=== PATIENT | female | born 1955 | race Caucasian/White ===

== ENCOUNTER → 2022-03-15 | Outpatient (CLI) | payer MEDICARE, BC ==
--- NOTE | 2022-03-17 11:52 | MM ---
Reason for exam: screening (asymptomatic). Last mammogram was performed 5 years ago. History: Patient is postmenopausal. Family history of breast cancer. Physical Findings: A clinical breast exam by your physician is recommended on an annual basis and results should be correlated with mammographic findings. MG 3D Screening Mammo W/Cad Bilateral CC and MLO view(s) were taken. Prior study comparison: March 14, 2017, mammogram, performed at [facility]. January 21, 2014, mammogram, performed at [facility]. September 10, 2012, mammogram, performed at [facility]. There are scattered fibroglandular densities. There is chronic nodularity in the right breast. Benign oil cyst calcifications bilaterally. No significant changes when compared with prior studies. ASSESSMENT: Benign, BI-RAD 2 RECOMMENDATION: Routine screening mammogram of both breasts in 1 year.
== END | disposition home or self-care (01) ==
LOC: RADMAMWWP 12:45
PROVIDERS: ATTEND Family Medicine
DX: Z12.31 Encounter for screening mammogram for malignant neoplasm of breast (principal); Z78.0 Asymptomatic menopausal state; Z80.3 Family history of malignant neoplasm of breast
CPT/HCPCS: 77063; 77067

== ENCOUNTER → 2023-03-01 | Outpatient (CLI) | payer MEDICARE, BC ==
--- NOTE | 2023-03-01 09:17 | CTL ---
EXAMINATION TYPE: CT Low Dose Lung DATE OF EXAM ORDERED: 03/01/2023 COMPARISON: none HISTORY: . Low Dose CT Lung Screening CT DLP: 74.[address] CTDI: 2.1 mGy IV CONTRAST USED: None. SCREENING VISIT: First visit COMPARISON: None. TECHNIQUE: Low dose computed tomography scan was performed through the chest at 1 millimeter thick se ctions and reconstructed images in the coronal plane at [address] DIAGNOSTIC QUALITY: Satisfactory FINDINGS: LUNG NODULES: Not presentLeft lung: no nodules identified.Right lung: no nodules identified. LUNGS: COPD: Severity: None Fibrosis: Severity:None Lymph nodes: None Other findings: None RIGHT PLEURAL SPACE: Effusion: None Calcification: None Thickening: None Pneumothorax: None LEFT PLEURAL SPACE: Effusion: None Calcification: None Thickening: None Pneumothorax: None HEART: Heart Size: Mildly enlarged Coronary calcification: Mild Pericardial effusion: None OTHER FINDINGS: Upper abdomen: No significant abnormality Bony thorax: Degenerative changes Supraclavicular region: No significant abnormalityOther: No significant abnormalityI IMPRESSION: Benign FOLLOW UP CT CHEST RECOMMENDATION: Follow-up screening in one year CT LUNG RAD: LUNG RAD CATEGORY category 1 negative
== END | disposition home or self-care (01) ==
LOC: RADCTMAIN 08:14
PROVIDERS: ATTEND Family Medicine
DX: Z12.2 Encounter for screening for malignant neoplasm of respiratory organs (principal); Z87.891 Personal history of nicotine dependence
CPT/HCPCS: 71271

== ENCOUNTER 2023-04-25 08:51 | Day surgery (SDC) | payer MEDICARE, BC ==
[~2023-04-25 08:51] MED LIST: LACTATED RINGERS 1,000 ML IV SCH
[2023-04-25 09:17] VITALS: TEMP 96.8
[2023-04-25] MEDS ORDERED: LIDOCAINE 2% INJ 20 MG/ML (2 ML VIAL) ONE (09:54)
[2023-04-25] MEDS ORDERED: PROPOFOL 10 MG/ML 20 ML VIAL IV ONE (09:54)
--- NOTE | 2023-04-25 10:20 | P.PCN ---
Date of Procedure: 04/25/23 Procedure(s) Performed: BRIEF HISTORY: Patient is a 68-year-old pleasant white female scheduled for an elective colonoscopy as a part of screening for colon cancer. PROCEDURE PERFORMED: Colonoscopy with snare polypectomy and biopsy. PREOPERATIVE DIAGNOSIS: Screening for colon cancer. IV sedation per Anesthesia. PROCEDURE: After informed consent was obtained, the patient, was brought into the endoscopy unit. IV sedation was administered by Anesthesia under continuous monitoring. Digital rectal examination was normal. Initially the Olympus CF-160 flexible video colonoscope was then inserted in the rectum, gradually advanced into the cecum without any difficulty. Careful examination was performed as the scope was gradually being withdrawn. Ileocecal valve and the appendiceal orifice were visualized and appeared normal. Prep was excellent. Mucosa of the cecum, ascending colon, transverse colon, appeared normal. In the descending colon there was a 3 mm sessile polyp that was removed by cold biopsy. In the sigmoid colon at 30 cm from the anal was there was a 2.5 cm pegylated polyp that was removed by snare polypectomy. Rest of the descending colon, sigmoid colon, and rectum appeared normal. Retroflexion was performed in the rectum and no lesions were seen. The patient tolerated the procedure well. IMPRESSION: 3 mm sessile descending colon polyp status post cold biopsy 2.5 cm pedunculated sigmoid: Polyp status post polypectomy RECOMMENDATIONS: Findings of this examination were discussed with the patient as a family. She was advised to follow with the biopsy results. If the biopsy with adenoma she can have a repeat colonoscopy in 3 years colonoscopy in 10 years..
[2023-04-25 10:28] VITALS: RESP 16
[2023-04-25 10:39] VITALS: BP 123/84; PULSE 59
== END 2023-04-25 11:24 | disposition home or self-care (01) ==
LOC: ORWHC2ENDO 08:51
PROVIDERS: ATTEND Internal Medicine Gastroenterology
DX: Z12.11 Encounter for screening for malignant neoplasm of colon (principal); D12.5 Benign neoplasm of sigmoid colon; I10 Essential (primary) hypertension; Z79.82 Long term (current) use of aspirin; Z88.5 Allergy status to narcotic agent; Z90.89 Acquired absence of other organs; Z98.51 Tubal ligation status; Z79.899 Other long term (current) drug therapy
CPT/HCPCS: 88305; 45380; 45385; J2704; J2001

== ENCOUNTER → 2024-03-21 | Outpatient (CLI) | payer MEDICARE ==
--- NOTE | 2024-03-25 12:27 | MM ---
Reason for Exam: Screening (asymptomatic). Last mammogram was performed 2 year(s) and 0 month(s) ago. Patient History: Menarche at age 14. First Full-Term at age 20. Postmenopausal. Risk Values: Samina 5 year model risk: 1.4%. NCI Lifetime model risk: 4.3%. Prior Study Comparison: 09/10/2012 Screening Mammogram, [facility]. 01/21/2014 Screening Mammogram, [facility]. 03/14/2017 Screening Mammogram, [facility]. 03/15/2022 Bilateral Screening Mammogram, [facility]. Tissue Density: The breasts are heterogeneously dense, which may obscure small masses. Findings: Analyzed By CAD. Right breast: There is no suspicious group of microcalcifications or new suspicious mass. Left breast: There is no suspicious group of microcalcifications or new suspicious mass. Overall Assessment: Negative, BI-RAD 1 Management: Screening Mammogram of both breasts in [address] [facility] will attempt to contact patient to return for supplemental views and ultrasound if indicated. Patient should continue monthly self-breast exams. A clinical breast exam by your physician is recommended on an annual basis. This exam should not preclude additional follow-up of suspicious palpable abnormalities. Note on Samina scores and lifetime risk: 1. A Samina score greater than 3% is considered moderate risk. If this is the case, consider specialist referral to assess eligibility for a risk reducing agent. 2. If overall lifetime risk for the development of breast cancer is 20% or higher, the patient may qualify for future screening with alternating mammogram and breast MRI. Electronically signed and approved by: Hoang Roche DO
== END | disposition home or self-care (01) ==
LOC: RADMAMWWP 10:44
PROVIDERS: ATTEND Family Medicine
DX: Z12.31 Encounter for screening mammogram for malignant neoplasm of breast (principal); Z78.0 Asymptomatic menopausal state
CPT/HCPCS: 77063; 77067